=== PATIENT | female | born 1940 | race Hispanic/Latino ===

== ENCOUNTER 2018-05-22 21:50 | Observation (INO) | payer OTHER ==
[~2018-05-22] VITALS: Ht 165.1 cm; Wt 85.0 kg
[2018-05-22] MEDS ORDERED: ASPIRIN 325 MG TABLET ONE (21:56)
[2018-05-22 22:09] LABS: BASOPHILS % (AUTO) 0.4 % (0.0-5.0); EOSINOPHILS % (AUTO) 0.1 % (0.0-8.0); LYMPHOCYTES % (AUTO) 5.3 % (21.0-51.0); MEAN CORPUSCULAR HEMOGLOBIN 29.7 pg (27.0-33.0); MEAN CORPUSCULAR HGB CONC 32.8 g/dL (32.0-36.0); MEAN CORPUSCULAR VOLUME 90.4 fL (79-99); MONOCYTES % (AUTO) 10.2 % (3.0-13.0); PLATELET COUNT (AUTO) 115 K/uL (130-400); RED BLOOD CELL COUNT(AUTO) 2.98 MIL/uL (4.00-5.50); RED CELL DISTRIBUTION WIDTH 15.8 % (11.0-15.5); WHITE BLOOD COUNT (AUTO) 9.5 K/uL (4.8-10.8)
[2018-05-22 22:21] LABS: CREATININE 1.9 mg/dL (0.5-1.5); POTASSIUM 5.3 mmol/L (3.5-5.1)
[2018-05-22 22:23] LABS: INR 1.02 (0.85-1.15); PARTIAL THROMBOPLASTIN TIME 34.4 SEC (26.3-35.5); PROTHROMBIN TIME 10.7 SEC (9.6-11.6)
[2018-05-22 22:39] LABS: PLATELET MORPHOLOGY PLT CLUMPS PRESENT
[2018-05-22 22:41] LABS: ALBUMIN 3.4 g/dL (3.5-5.0); BILIRUBIN,TOTAL 1.4 mg/dL (0.2-1.0); TOTAL PROTEIN, SERUM 7.1 g/dL (6.0-8.3)
[2018-05-22] MEDS ORDERED: NITROGLYCERIN 1GM/1 INCH PACKET TD ONE (22:44)
[2018-05-23] VITALS (8 sets, daily range): BP systolic 147–175; BP diastolic 52–68
[2018-05-23] MEDS ORDERED: SODIUM POLYSTYRENE SULFONATE 15 GM/60 ML ML ONE (00:17)
[2018-05-23] MEDS ORDERED: FUROSEMIDE 10 MG/ML 4ML VIAL ONE (00:18)
[2018-05-23] MEDS ORDERED: SODIUM CHLORIDE 0.9% 100 ML IV ONE (00:21)
[2018-05-23] MEDS ORDERED: CALCIUM GLUCONATE 1 GM/10 ML VIAL IV ONE (00:21)
[2018-05-23] MEDS ORDERED: ATOR10TA69 PO (01:58)
[2018-05-23] MEDS ORDERED: GLIP5TAB11 PO (01:58)
[2018-05-23] MEDS ORDERED: ROSU5TAB11 PO (01:58)
[2018-05-23] MEDS ORDERED: ACAR50TA PO (01:58)
[2018-05-23] MEDS ORDERED: OLME40TA18 PO (01:58)
[2018-05-23] MEDS ORDERED: BACL10TA PO (01:58)
[2018-05-23] MEDS ORDERED: AEC81 PO (01:58)
[2018-05-23] MEDS ORDERED: CYAN10009 PO (01:58)
[2018-05-23] MEDS ORDERED: FOLI1TAB85 PO (01:58)
[2018-05-23] MEDS ORDERED: CLOP75TA32 PO (01:58)
[2018-05-23] MEDS ORDERED: SPIR25TA6 PO (01:58)
[2018-05-23] MEDS ORDERED: FAMO20TA8 PO (01:58)
[2018-05-23] MEDS ORDERED: AMLO10TA6 PO (01:58)
[2018-05-23] MEDS ORDERED: LABE200T5 PO (01:58)
[2018-05-23] MEDS ORDERED: IRBE300T19 PO (01:58)
[2018-05-23] MEDS ORDERED: CATAPRES PATCH (02:06)
[2018-05-23] MEDS ORDERED: ONDANSETRON HCL 4 MG/2 ML VIAL IVP PRN (03:00)
[2018-05-23] MEDS ORDERED: ALBUTEROL SULFATE 0.083% 2.5 MG/3 ML INH IH PRN (03:00)
[2018-05-23 03:49] LABS: BASOPHILS % (AUTO) 0.4 % (0.0-5.0); HEMATOCRIT 23.3 % (36-48); LYMPHOCYTES % (AUTO) 6.8 % (21.0-51.0); MEAN CORPUSCULAR HEMOGLOBIN 30.5 pg (27.0-33.0); MEAN CORPUSCULAR HGB CONC 34.1 g/dL (32.0-36.0); MEAN CORPUSCULAR VOLUME 89.6 fL (79-99); MONOCYTES % (AUTO) 9.3 % (3.0-13.0); NEUTROPHILS % (AUTO) 83.5 % (40.0-77.0); PLATELET COUNT (AUTO) 123 K/uL (130-400); RED BLOOD CELL COUNT(AUTO) 2.61 MIL/uL (4.00-5.50); RED CELL DISTRIBUTION WIDTH 15.9 % (11.0-15.5); WHITE BLOOD COUNT (AUTO) 7.6 K/uL (4.8-10.8)
[2018-05-23 03:59] LABS: ALBUMIN 3.1 g/dL (3.5-5.0); BILIRUBIN,TOTAL 1.3 mg/dL (0.2-1.0); CREATININE 1.9 mg/dL (0.5-1.5); POTASSIUM 4.8 mmol/L (3.5-5.1); TOTAL PROTEIN, SERUM 6.6 g/dL (6.0-8.3)
[2018-05-23 04:10] LABS: B-TYPE NATRIURETIC PEPTIDE 1500 pg/mL (0-100)
[2018-05-23] MEDS ORDERED: FUROSEMIDE 10 MG/ML 4ML VIAL IVP SCH (06:00)
[2018-05-23] MEDS ORDERED: GLUCAGON 1MG KIT 1 MG ML IM PRN (06:45)
[2018-05-23] MEDS ORDERED: DEXTROSE 50%-WATER 50 ML DISP.SYRIN IV PRN (06:45)
[2018-05-23] MEDS: INSULIN HUMULIN R 100 UNIT/ML 3ML SQ SCH ×4 (06:54→21:00)
[2018-05-23] MEDS: ASPIRIN 81MG TAB.CHEW PO SCH (08:30)
[2018-05-23] MEDS: ENOXAPARIN SODIUM 80 MG/0.8 ML SQ SCH ×2 (08:32→23:32)
[2018-05-23] MEDS ORDERED: SODIUM POLYSTYRENE SULFONATE 15 GM/60 ML ML PO SCH (09:00)
[2018-05-23] MEDS ORDERED: METOPROLOL TARTRATE 25 MG TAB PO SCH (09:00)
[2018-05-23] MEDS: AMLODIPINE BESYLATE 5 MG TAB PO SCH (11:22)
[2018-05-23] MEDS: ACETAMINOPHEN 325 MG TAB PO PRN (11:24)
[2018-05-23] MEDS: IPRATROPIUM/ALBUTEROL SULFATE 3 ML SOLUTION IH SCH ×3 (11:41→23:57)
[2018-05-23 14:54] LABS: APPEARANCE,URINE Clear (CLEAR); BILIRUBIN,URINE Negative (NEGATIVE); COLOR,URINE Yellow (YELLOW); GLUCOSE, URINE (UA) Negative (NEGATIVE); KETONES,URINE Negative (NEGATIVE); LEUKOCYTE ESTERASE ,URINE Negative (NEGATIVE); NITRATE,URINE Negative (NEGATIVE); OCCULT BLOOD,URINE Negative (NEGATIVE); PROTEIN,URINE Negative (NEGATIVE); UROBILINOGEN,URINE 0.2 mg/dL (0.2-1.0)
[2018-05-23] MEDS: LEVOFLOXACIN 500 MG/D5W 100 ML 100 ML IV SCH (16:57)
[2018-05-23] MEDS: FUROSEMIDE 40 MG TABLET PO SCH (17:05)
[2018-05-23] MEDS ORDERED: CLON.3P TD (18:12)
[2018-05-23] MEDS: ATORVASTATIN CALCIUM 40 MG TABLET PO SCH (23:31)
[2018-05-23] MEDS: LABETALOL HCL 100 MG TABLET PO SCH (23:31)
[2018-05-24] MEDS: ACETAMINOPHEN 325 MG TAB PO PRN (02:08)
[2018-05-24 03:00] VITALS: BP 150/58
[2018-05-24] MEDS: INSULIN HUMULIN R 100 UNIT/ML 3ML SQ SCH ×4 (05:00→20:55)
[2018-05-24 05:48] LABS: HEMATOCRIT 24.4 % (36-48); MEAN CORPUSCULAR HGB CONC 32.4 g/dL (32.0-36.0); MEAN CORPUSCULAR VOLUME 89.5 fL (79-99); PLATELET COUNT (AUTO) 116 K/uL (130-400); RED BLOOD CELL COUNT(AUTO) 2.73 MIL/uL (4.00-5.50); RED CELL DISTRIBUTION WIDTH 15.4 % (11.0-15.5)
[2018-05-24 05:54] LABS: CREATININE 2.1 mg/dL (0.5-1.5); POTASSIUM 3.3 mmol/L (3.5-5.1)
[2018-05-24 05:55] LABS: INR 1.09 (0.85-1.15); PARTIAL THROMBOPLASTIN TIME 43.9 SEC (26.3-35.5); PROTHROMBIN TIME 11.4 SEC (9.6-11.6)
[2018-05-24] MEDS: IPRATROPIUM/ALBUTEROL SULFATE 3 ML SOLUTION IH SCH ×4 (06:39→23:13)
[2018-05-24 07:47] VITALS: BP 155/56
[2018-05-24] MEDS ORDERED: AMLODIPINE BESYLATE 5 MG TAB PO SCH (09:00)
[2018-05-24] MEDS: ASPIRIN 81MG TAB.CHEW PO SCH (10:04)
[2018-05-24] MEDS: FUROSEMIDE 40 MG TABLET PO SCH ×2 (10:04→16:35)
[2018-05-24] MEDS: LABETALOL HCL 100 MG TABLET PO SCH ×2 (10:05→20:54)
[2018-05-24] MEDS: AMLODIPINE BESYLATE 5 MG TAB PO SCH (10:05)
[2018-05-24] MEDS: LOSARTAN 100 MG TABLET PO SCH (10:05)
[2018-05-24] MEDS: ENOXAPARIN SODIUM 80 MG/0.8 ML SQ SCH ×2 (10:10→20:53)
[2018-05-24 11:35] VITALS: BP 173/65
[2018-05-24] MEDS ORDERED: HYDRALAZINE HCL 25 MG TABLET PO PRN (14:30)
[2018-05-24 16:04] VITALS: BP 148/49
[2018-05-24] MEDS: LEVOFLOXACIN 500 MG/D5W 100 ML 100 ML IV SCH (16:35)
[2018-05-24 20:07] VITALS: BP 144/58
[2018-05-24] MEDS: ATORVASTATIN CALCIUM 40 MG TABLET PO SCH (20:53)
[2018-05-24 23:50] LABS: APPEARANCE,URINE Clear (CLEAR); BILIRUBIN,URINE Negative (NEGATIVE); COLOR,URINE Yellow (YELLOW); GLUCOSE, URINE (UA) Negative (NEGATIVE); KETONES,URINE Negative (NEGATIVE); LEUKOCYTE ESTERASE ,URINE Trace (NEGATIVE); NITRATE,URINE Negative (NEGATIVE); OCCULT BLOOD,URINE Negative (NEGATIVE); PROTEIN,URINE Negative (NEGATIVE)
[2018-05-24 23:59] VITALS: BP 142/50
[2018-05-25 00:23] LABS: BACTERIA,URINE Rare /HPF (None Seen); RBC,URINE 0-1 /HPF (0-1); SQUAMOUS EPITHELIAL CELL,UR 0-2 /HPF (0-2)
[2018-05-25 03:36] LABS: BASOPHILS % (AUTO) 0.3 % (0.0-5.0); EOSINOPHILS % (AUTO) 1.8 % (0.0-8.0); HEMATOCRIT 23.1 % (36-48); LYMPHOCYTES % (AUTO) 12.2 % (21.0-51.0); MEAN CORPUSCULAR HEMOGLOBIN 29.7 pg (27.0-33.0); MEAN CORPUSCULAR HGB CONC 33.5 g/dL (32.0-36.0); MEAN CORPUSCULAR VOLUME 88.6 fL (79-99); MONOCYTES % (AUTO) 12.4 % (3.0-13.0); NEUTROPHILS % (AUTO) 73.3 % (40.0-77.0); PLATELET COUNT (AUTO) 128 K/uL (130-400); RED BLOOD CELL COUNT(AUTO) 2.61 MIL/uL (4.00-5.50); RED CELL DISTRIBUTION WIDTH 15.1 % (11.0-15.5); WHITE BLOOD COUNT (AUTO) 4.8 K/uL (4.8-10.8)
[2018-05-25 03:55] LABS: CREATININE 1.9 mg/dL (0.5-1.5); POTASSIUM 3.4 mmol/L (3.5-5.1)
[2018-05-25 04:02] VITALS: BP 158/57
[2018-05-25] MEDS: IPRATROPIUM/ALBUTEROL SULFATE 3 ML SOLUTION IH SCH ×2 (06:08→11:39)
[2018-05-25] MEDS: INSULIN HUMULIN R 100 UNIT/ML 3ML SQ SCH ×2 (06:38→11:30)
[2018-05-25 07:39] VITALS: BP 162/48
[2018-05-25] MEDS: AMLODIPINE BESYLATE 5 MG TAB PO SCH (09:26)
[2018-05-25] MEDS: LABETALOL HCL 100 MG TABLET PO SCH (09:27)
[2018-05-25] MEDS: FUROSEMIDE 40 MG TABLET PO SCH (09:27)
[2018-05-25] MEDS: LOSARTAN 100 MG TABLET PO SCH (09:27)
[2018-05-25] MEDS: ASPIRIN 81MG TAB.CHEW PO SCH (09:27)
[2018-05-25] MEDS: ENOXAPARIN SODIUM 80 MG/0.8 ML SQ SCH (09:28)
[2018-05-25 11:36] VITALS: BP 166/64
[2018-05-25] MEDS ORDERED: POTASSIUM CHLORIDE 20 MEQ ERTAB PO SCH ×2 (13:30)
[2018-05-25] MEDS: LEVOFLOXACIN 500 MG/D5W 100 ML 100 ML IV SCH (14:25)
== END 2018-05-25 16:09 | disposition home or self-care (01) ==
LOC: EDH 21:50 → EDHIP 05-23 00:05 → INTOOBSV 05-23 00:05 → 2DH 05-23 01:03
PROVIDERS: ADMIT Hospitalist; ATTEND Hospitalist
DX: I25.110 Atherosclerotic heart disease of native coronary artery with unstable angina pectoris (principal); N17.9 Acute kidney failure, unspecified; E44.0 Moderate protein-calorie malnutrition; E03.9 Hypothyroidism, unspecified; I13.0 Hypertensive heart and chronic kidney disease with heart failure and stage 1 through stage 4 chronic kidney disease, or unspecified chronic kidney disease; N18.9 Chronic kidney disease, unspecified; E78.5 Hyperlipidemia, unspecified; I50.9 Heart failure, unspecified; E11.22 Type 2 diabetes mellitus with diabetic chronic kidney disease; E11.51 Type 2 diabetes mellitus with diabetic peripheral angiopathy without gangrene; E66.9 Obesity, unspecified; E87.5 Hyperkalemia; G47.33 Obstructive sleep apnea (adult) (pediatric); Z95.1 Presence of aortocoronary bypass graft; Z82.49 Family history of ischemic heart disease and other diseases of the circulatory system; Z83.3 Family history of diabetes mellitus; Z82.5 Family history of asthma and other chronic lower respiratory diseases; Z79.899 Other long term (current) drug therapy
CPT/HCPCS: 36415 ×4; 71045 ×2; 71046; 78580; 80048 ×2; 80053 ×2; 81001; 81003; 82550; 82948 ×10; 83874; 83880 ×2; 84484 ×2; 85025 ×3; 85027; 85378; 85610 ×2; 85730 ×2; 87040 ×2; 87077; 87088; 87186; 93005 ×2; 93306; 94640 ×10; 94664; 96365; 96366 ×2; 96372 ×3; 96375; 99285; A9540 ×2; G0378 ×64; J0610; J1650 ×5; J1815 ×4; J1940 ×2; J1956 ×3

== ENCOUNTER → 2018-09-12 | Outpatient (CLI) | payer OTHER ==
[~2018-09-12] MED LIST: ACAR50TA PO; AEC81 PO; AMLO10TA7 PO; ATOR10TA69 PO; BACL10TA PO; CATAPRES PATCH; CLON.3P TD; CLOP75TA32 PO; CYAN10009 PO; FAMO20TA8 PO; FOLI1TAB85 PO; GLIP5TAB11 PO; IRBE300T19 PO; LABE200T5 PO; OLME40TA18 PO; ROSU5TAB11 PO; SPIR25TA6 PO
== END | disposition home or self-care (01) ==
LOC: SHCH 13:19
PROVIDERS: ATTEND Internal Medicine Cardiovascular Disease
DX: I65.23 Occlusion and stenosis of bilateral carotid arteries (principal); I25.10 Atherosclerotic heart disease of native coronary artery without angina pectoris; I47.1 Supraventricular tachycardia
CPT/HCPCS: 93880

== ENCOUNTER 2018-10-21 10:33 | Emergency (ER) | payer OTHER ==
[2018-10-21] MEDS ORDERED: TETANUS/DIPHTHERIA TOXOID [ADULT] 0.5 ML VIAL IM ONE (11:59)
== END 2018-10-21 12:07 | disposition home or self-care (01) ==
LOC: EDH 10:33
DX: S51.811A Laceration without foreign body of right forearm, initial encounter (principal); M25.562 Pain in left knee; I25.810 Atherosclerosis of coronary artery bypass graft(s) without angina pectoris; E11.9 Type 2 diabetes mellitus without complications; E78.5 Hyperlipidemia, unspecified; I10 Essential (primary) hypertension; Z79.4 Long term (current) use of insulin; W18.39XA Other fall on same level, initial encounter; Y93.01 Activity, walking, marching and hiking; Y92.89 Other specified places as the place of occurrence of the external cause; Y99.8 Other external cause status
CPT/HCPCS: 73080; 73562; 90471; 90714

== ENCOUNTER 2018-11-02 12:31 | Inpatient (IN) | payer OTHER ==
[~2018-11-02] VITALS: Ht 157.5 cm; Wt 82.0 kg
[2018-11-02 13:06] LABS: BASOPHILS % (AUTO) 0.4 % (0.0-5.0); EOSINOPHILS % (AUTO) 0.6 % (0.0-8.0); HEMATOCRIT 30.6 % (36-48); LYMPHOCYTES % (AUTO) 11.9 % (21.0-51.0); MEAN CORPUSCULAR HEMOGLOBIN 31.2 pg (27.0-33.0); MEAN CORPUSCULAR HGB CONC 33.5 g/dL (32.0-36.0); MEAN CORPUSCULAR VOLUME 92.9 fL (79-99); MONOCYTES % (AUTO) 6.1 % (3.0-13.0); PLATELET COUNT (AUTO) 166 K/uL (130-400); RED CELL DISTRIBUTION WIDTH 15.4 % (11.0-15.5)
[2018-11-02 13:24] LABS: APPEARANCE,URINE Clear (CLEAR); BILIRUBIN,URINE Negative (NEGATIVE); COLOR,URINE Yellow (YELLOW); GLUCOSE, URINE (UA) Negative (NEGATIVE); KETONES,URINE Negative (NEGATIVE); LEUKOCYTE ESTERASE ,URINE Negative (NEGATIVE); NITRATE,URINE Negative (NEGATIVE); OCCULT BLOOD,URINE Negative (NEGATIVE); PROTEIN,URINE Negative (NEGATIVE)
[2018-11-02 13:28] LABS: CREATININE 2.6 mg/dL (0.5-1.5); POTASSIUM 4.4 mmol/L (3.5-5.1)
[2018-11-02 13:30] LABS: INR 0.94 (0.85-1.15); PARTIAL THROMBOPLASTIN TIME 25.9 SEC (26.3-35.5); PROTHROMBIN TIME 9.9 SEC (9.6-11.6)
[2018-11-02 13:32] LABS: ALBUMIN 3.7 g/dL (3.5-5.0); BILIRUBIN,TOTAL 0.5 mg/dL (0.2-1.0)
[2018-11-02] MEDS ORDERED: CLONIDINE HCL 0.1 MG TABLET ONE (14:57)
[2018-11-02] MEDS ORDERED: ASPIRIN 325 MG TABLET ONE (14:57)
[2018-11-02] MEDS ORDERED: CEFTRIAXONE SODIUM 1 GM ONE (15:41)
[2018-11-02] MEDS: SODIUM CHLORIDE 0.9% 1000ML 1,000 ML IV SCH (17:00)
[2018-11-02 18:30] VITALS: BP 149/65
[2018-11-02 19:00] VITALS: BP 149/65
[2018-11-02] MEDS ORDERED: FAMO-136 PO (20:06)
[2018-11-02] MEDS ORDERED: CLON0.1T PO (20:06)
[2018-11-02] MEDS ORDERED: HYDR100T27 PO (20:06)
[2018-11-02] MEDS ORDERED: INSU100V12 SQ (20:06)
[2018-11-02] MEDS ORDERED: FURO40TA7 PO (20:06)
[2018-11-02] MEDS ORDERED: LATA7.5D OP (20:06)
[2018-11-02] MEDS ORDERED: BACLOFEN 10 MG TABLET PO SCH (20:15)
[2018-11-02] MEDS ORDERED: DEXTROSE 50%-WATER 50 ML DISP.SYRIN IV PRN (20:30)
[2018-11-02] MEDS ORDERED: GLUCAGON 1MG KIT 1 MG ML IM PRN (20:30)
[2018-11-02] MEDS ORDERED: FAMOTIDINE 20MG TAB 20 MG TAB PO SCH (21:00)
[2018-11-02] MEDS: LABETALOL HCL 200 MG TABLET PO SCH ×2 (21:00→21:49)
[2018-11-02] MEDS: HYDRALAZINE HCL 25 MG TABLET PO SCH ×2 (21:00→21:48)
[2018-11-02] MEDS: CLONIDINE HCL 0.1 MG TABLET PO SCH ×2 (21:00→21:48)
[2018-11-02] MEDS: INSULIN HUMULIN R 100 UNIT/ML 3ML SQ SCH ×2 (21:00→21:51)
[2018-11-02] MEDS: LATANOPROST 2.5 ML DROPS OP SCH (21:47)
[2018-11-02] MEDS: FUROSEMIDE 40 MG TABLET PO SCH ×2 (21:49→22:17)
--- NOTE | 2018-11-02 21:50 | NUR ---
Pt's daughter here to bedside and said pt. meier already taken her bedtime meds except for her Lasix.She also refused to have insulin coverage given because according to her pt. is very sensitive.
--- NOTE | 2018-11-02 22:04 | NUR ---
Dr. Fadia antunez MD for Dr. Dover was called and notified regarding consult.Will see pt. tomorrow he said.
[2018-11-02 23:00] VITALS: BP 156/57
[2018-11-03 03:00] VITALS: BP 176/60
--- NOTE | 2018-11-03 03:58 | NUR ---
STORMY Hope was called and notified regarding pt.c/o headache .Received order to give Tylenol with Codeine 1 tab p.o q 6.prn pain.BP 176/60mmHg and will give prn hydralazine as ordered.Will continue to monitor pt.
[2018-11-03] MEDS ORDERED: ACETAMINOPHEN-CODEINE 300/30MG TAB PO PRN (04:00)
[2018-11-03] MEDS ORDERED: ACETAMINOPHEN-CODEINE 300/30MG TAB ONE (04:05)
[2018-11-03] MEDS: HYDRALAZINE HCL 20 MG/ML VIAL IV PRN (04:09)
[2018-11-03] MEDS: INSULIN HUMULIN R 100 UNIT/ML 3ML SQ SCH ×4 (07:09→20:36)
[2018-11-03 07:11] LABS: HEMATOCRIT 28.4 % (36-48); MEAN CORPUSCULAR HEMOGLOBIN 31.4 pg (27.0-33.0); MEAN CORPUSCULAR HGB CONC 33.6 g/dL (32.0-36.0); MEAN CORPUSCULAR VOLUME 93.4 fL (79-99); PLATELET COUNT (AUTO) 146 K/uL (130-400); RED BLOOD CELL COUNT(AUTO) 3.04 MIL/uL (4.00-5.50); RED CELL DISTRIBUTION WIDTH 15.7 % (11.0-15.5); WHITE BLOOD COUNT (AUTO) 4.6 K/uL (4.8-10.8)
[2018-11-03 07:39] LABS: POTASSIUM 4.6 mmol/L (3.5-5.1)
[2018-11-03 07:40] LABS: CREATININE 2.2 mg/dL (0.5-1.5); THYROID STIMULATING HORMONE 0.18 uIU/mL (0.36-3.74)
[2018-11-03 08:00] VITALS: BP 182/60
[2018-11-03] MEDS: ACARBOSE 25 MG TABLET PO SCH ×2 (08:00→17:52)
[2018-11-03] MEDS: LATANOPROST 2.5 ML DROPS OP SCH ×2 (09:00→20:36)
[2018-11-03] MEDS ORDERED: SPIRONOLACTONE 25 MG TAB PO SCH (09:00)
--- NOTE | 2018-11-03 09:40 | NUR ---
DR. LARA NOTIFIED REGARDING CONSULT.
[2018-11-03] MEDS: HYDRALAZINE HCL 25 MG TABLET PO SCH ×3 (10:06→20:35)
[2018-11-03] MEDS: GLIPIZIDE 5 MG TABLET PO SCH ×2 (10:07→17:52)
[2018-11-03] MEDS: FOLIC ACID/VITAMIN B COMP W-C 1 MG CAPSULE PO SCH (10:07)
[2018-11-03] MEDS: FAMOTIDINE 20MG TAB 20 MG TAB PO SCH (10:07)
[2018-11-03] MEDS: LOSARTAN 100 MG TABLET PO SCH (10:08)
[2018-11-03] MEDS: CLONIDINE HCL 0.1 MG TABLET PO SCH ×3 (10:08→20:35)
[2018-11-03] MEDS: ATORVASTATIN CALCIUM 10 MG TABLET PO SCH (10:09)
[2018-11-03] MEDS: FUROSEMIDE 40 MG TABLET PO SCH (10:09)
[2018-11-03] MEDS: LABETALOL HCL 200 MG TABLET PO SCH ×2 (10:09→20:35)
[2018-11-03] MEDS: SODIUM CHLORIDE 0.9% 1000ML 1,000 ML IV SCH ×2 (10:10→23:25)
[2018-11-03 12:00] VITALS: BP 143/56
--- NOTE | 2018-11-03 12:19 | NUR ---
D/C PLAN CM spoke to pt and family regarding d/c planning. Daughter named Emani at bedside. Pt is ind. and lives with spouse. Spouse assists in care as needed. Denies having any home health or provider services. Plan to home. CM to f/u. Addendum: 11/03/18 at 1225 by CHER DAWN CM Amended: Links added.
[2018-11-03] MEDS: INSULIN GLARGINE 100 UNITS/ML 10 ML VIAL SQ SCH (12:24)
[2018-11-03] MEDS ORDERED: ONDANSETRON HCL 4 MG/2 ML VIAL IVP PRN (12:30)
[2018-11-03 16:09] VITALS: BP 130/53
[2018-11-03 19:00] VITALS: BP 156/67
--- NOTE | 2018-11-03 20:35 | NUR ---
MEDS PT'S DUE MEDS ADMINISTERED, TOLERATED WELL. KEPT RESTED AND COMFORTABLE IN BED. FAMILY STILL AT BEDSIDE. INSTRUCTED FAMILY TO LET STAFF KNOW WHEN NOBODY IS WITH PT TO MONITOR PT CLOSELY.
[2018-11-03 23:10] VITALS: BP 158/73
--- NOTE | 2018-11-04 02:00 | NUR ---
ROUNDS PT RESTING WELL, FAIRLY ASLEEP WITH RESPIRATIONS EVEN AND UNLABORED. NO NOTED DISTRESS. KEPT UNDISTURBED FOR NOW. CALL LIGHT WITHIN REACH. PT'S SPOUSE ASLEEP AT BEDSIDE.
--- NOTE | 2018-11-04 02:08 | NUR ---
SUGAR PT AWAKENED AND COMPLAINTS OF FEELING WARM AND SWEATY. BLOOD SUGAR CHECKED =60. APPLE JUICE PROVIDED FOR PT TO DRINK. PT ALSO HAS CHICKEN SANDWICH AT BEDSIDE AND STATED WILL EAT IT. KEPT COMFORTABLE. WILL RE-ASSESS PT.
[2018-11-04 04:07] VITALS: BP 121/43
[2018-11-04 05:38] LABS: BASOPHILS % (AUTO) 0.3 % (0.0-5.0); EOSINOPHILS % (AUTO) 0.7 % (0.0-8.0); HEMATOCRIT 27.3 % (36-48); LYMPHOCYTES % (AUTO) 11.3 % (21.0-51.0); MEAN CORPUSCULAR HEMOGLOBIN 32.1 pg (27.0-33.0); MEAN CORPUSCULAR HGB CONC 34.4 g/dL (32.0-36.0); MEAN CORPUSCULAR VOLUME 93.5 fL (79-99); MONOCYTES % (AUTO) 5.5 % (3.0-13.0); NEUTROPHILS % (AUTO) 82.2 % (40.0-77.0); PLATELET COUNT (AUTO) 138 K/uL (130-400); RED BLOOD CELL COUNT(AUTO) 2.92 MIL/uL (4.00-5.50); RED CELL DISTRIBUTION WIDTH 15.8 % (11.0-15.5); WHITE BLOOD COUNT (AUTO) 6.5 K/uL (4.8-10.8)
[2018-11-04 05:51] LABS: ALBUMIN 2.9 g/dL (3.5-5.0); CREATININE 2.5 mg/dL (0.5-1.5); PHOSPHORUS 4.3 mg/dL (2.5-4.9); POTASSIUM 4.5 mmol/L (3.5-5.1)
--- NOTE | 2018-11-04 06:00 | NUR ---
ROUNDS PT RESTING WELL. NO CONCERNS VERBALIZED. NO DISTRESS NOTED. KEPT COMFORTABLE. FOR MORE CARE AND MANAGEMENT.
[2018-11-04] MEDS: INSULIN HUMULIN R 100 UNIT/ML 3ML SQ SCH ×4 (06:07→21:00)
[2018-11-04 08:00] VITALS: BP 147/58
[2018-11-04] MEDS: LOSARTAN 100 MG TABLET PO SCH (08:44)
[2018-11-04] MEDS: FAMOTIDINE 20MG TAB 20 MG TAB PO SCH (08:44)
[2018-11-04] MEDS: FOLIC ACID/VITAMIN B COMP W-C 1 MG CAPSULE PO SCH (08:44)
[2018-11-04] MEDS: HYDRALAZINE HCL 25 MG TABLET PO SCH ×3 (08:44→21:03)
[2018-11-04] MEDS: LABETALOL HCL 200 MG TABLET PO SCH ×2 (08:44→21:02)
[2018-11-04] MEDS: ATORVASTATIN CALCIUM 10 MG TABLET PO SCH (08:44)
[2018-11-04] MEDS: GLIPIZIDE 5 MG TABLET PO SCH ×2 (08:45→16:10)
[2018-11-04] MEDS: CLONIDINE HCL 0.1 MG TABLET PO SCH ×3 (08:47→21:02)
[2018-11-04] MEDS: INSULIN GLARGINE 100 UNITS/ML 10 ML VIAL SQ SCH (08:48)
[2018-11-04] MEDS: ACARBOSE 25 MG TABLET PO SCH ×2 (08:52→16:10)
[2018-11-04] MEDS: LATANOPROST 2.5 ML DROPS OP SCH ×2 (08:53→21:03)
[2018-11-04 12:00] VITALS: BP 153/54
[2018-11-04] MEDS: SODIUM CHLORIDE 0.9% 1000ML 1,000 ML IV SCH (15:28)
[2018-11-04 16:22] VITALS: BP 154/59
[2018-11-04 20:00] VITALS: BP 150/59
[2018-11-05] VITALS (7 sets, daily range): BP systolic 136–185; BP diastolic 50–71
--- NOTE | 2018-11-05 06:04 | NUR ---
BLOOD SUGAR Pt blood sugar check at this time was recorded at 55, pt asymptomatic, AOX3, no confusion noted, able to state name, , and place, pt not diaphoretic, and able to eat and swallow, 4oz of apple juice provided with crackers and peanut butter. pt tolerating well, nursing will repeat sugar check and continue to monitor.
[2018-11-05] MEDS: INSULIN HUMULIN R 100 UNIT/ML 3ML SQ SCH ×4 (06:53→21:00)
--- NOTE | 2018-11-05 06:55 | NUR ---
BLOOD SUGAR Repeat sugar check 101
[2018-11-05] MEDS: INSULIN GLARGINE 100 UNITS/ML 10 ML VIAL SQ SCH (08:20)
[2018-11-05] MEDS: ACARBOSE 25 MG TABLET PO SCH ×2 (08:21→17:01)
[2018-11-05] MEDS: FOLIC ACID/VITAMIN B COMP W-C 1 MG CAPSULE PO SCH (08:23)
[2018-11-05] MEDS: ATORVASTATIN CALCIUM 10 MG TABLET PO SCH (08:23)
[2018-11-05] MEDS: LOSARTAN 100 MG TABLET PO SCH (08:23)
[2018-11-05] MEDS: LABETALOL HCL 200 MG TABLET PO SCH ×2 (08:24→21:37)
[2018-11-05] MEDS: GLIPIZIDE 5 MG TABLET PO SCH ×2 (08:24→17:01)
[2018-11-05] MEDS: FAMOTIDINE 20MG TAB 20 MG TAB PO SCH (08:24)
[2018-11-05] MEDS: HYDRALAZINE HCL 25 MG TABLET PO SCH ×3 (08:24→21:38)
[2018-11-05] MEDS: LATANOPROST 2.5 ML DROPS OP SCH ×2 (08:25→21:40)
[2018-11-05] MEDS: CLONIDINE HCL 0.1 MG TABLET PO SCH ×3 (08:25→21:38)
[2018-11-05 09:25] LABS: HEMATOCRIT 27.6 % (36-48); MEAN CORPUSCULAR HEMOGLOBIN 32.6 pg (27.0-33.0); MEAN CORPUSCULAR HGB CONC 34.2 g/dL (32.0-36.0); MEAN CORPUSCULAR VOLUME 95.2 fL (79-99); NUCLEATED RED BLOOD CELLS 0.1 % (0.0-0.19); PLATELET COUNT (AUTO) 128 K/uL (130-400); RED CELL DISTRIBUTION WIDTH 15.6 % (11.0-15.5); WHITE BLOOD COUNT (AUTO) 5.3 K/uL (4.8-10.8)
[2018-11-05 09:38] LABS: POTASSIUM 5.5 mmol/L (3.5-5.1)
--- NOTE | 2018-11-05 10:15 | NUR ---
Dr. Kern called for k 5.5. Message left for answering service, pending call back.
--- NOTE | 2018-11-05 11:30 | NUR ---
BS 390, pt asymptomatic. Dr. Oliver notified. No new orders.
[2018-11-05] MEDS: SODIUM POLYSTYRENE SULFONATE 15 GM/60 ML ML PO SCH (11:38)
[2018-11-05] MEDS: HYDRALAZINE HCL 20 MG/ML VIAL IV PRN (13:35)
--- NOTE | 2018-11-05 19:26 | NUR ---
Patient states she had BM today. Kayexelate given earlier for k5.5
--- NOTE | 2018-11-05 19:37 | NUR ---
Received bedside report ,pt. is awake and coherent,B/S 63.HS snack given .Pt. verbalized feeling better.Pt. is asymptomatic.Will recheck B/S in later.Pt's to bedside.
--- NOTE | 2018-11-05 20:05 | NUR ---
bLOOD SUGAR RECHECKED AND ITS 98.
[2018-11-06] VITALS: BP 154/55
--- NOTE | 2018-11-06 00:45 | NUR ---
Pt. asked to recheck her blood sugar and its 62.Pt. is alert and coherent.Given with oramge juice and some crackers with peanut butter per pt's choice.Will recheck blood sugar in 30 minutes.
[2018-11-06 04:00] VITALS: BP 150/61
[2018-11-06] MEDS: INSULIN HUMULIN R 100 UNIT/ML 3ML SQ SCH ×4 (06:41→21:00)
[2018-11-06 08:42] VITALS: BP 158/59
[2018-11-06] MEDS: INSULIN GLARGINE 100 UNITS/ML 10 ML VIAL SQ SCH (09:00)
[2018-11-06] MEDS: LATANOPROST 2.5 ML DROPS OP SCH ×2 (09:00→21:56)
[2018-11-06] MEDS: FOLIC ACID/VITAMIN B COMP W-C 1 MG CAPSULE PO SCH (09:17)
[2018-11-06] MEDS: FUROSEMIDE 40 MG TABLET PO SCH (09:17)
[2018-11-06] MEDS: LOSARTAN 100 MG TABLET PO SCH (09:17)
[2018-11-06] MEDS: FAMOTIDINE 20MG TAB 20 MG TAB PO SCH (09:17)
[2018-11-06] MEDS: ATORVASTATIN CALCIUM 10 MG TABLET PO SCH (09:17)
[2018-11-06] MEDS: CLONIDINE HCL 0.1 MG TABLET PO SCH ×3 (09:18→21:52)
[2018-11-06] MEDS: HYDRALAZINE HCL 25 MG TABLET PO SCH ×3 (09:22→21:53)
[2018-11-06] MEDS: LABETALOL HCL 200 MG TABLET PO SCH ×2 (09:22→21:52)
[2018-11-06] MEDS: ACARBOSE 25 MG TABLET PO SCH ×2 (09:47→17:38)
[2018-11-06] MEDS: GLIPIZIDE 5 MG TABLET PO SCH ×2 (09:48→17:38)
[2018-11-06] MEDS: SODIUM POLYSTYRENE SULFONATE 15 GM/60 ML ML PO SCH (11:00)
[2018-11-06 11:20] VITALS: BP 155/68
[2018-11-06 13:13] LABS: HEMATOCRIT 27.2 % (36-48); MEAN CORPUSCULAR HEMOGLOBIN 31.1 pg (27.0-33.0); MEAN CORPUSCULAR HGB CONC 33.1 g/dL (32.0-36.0); PLATELET COUNT (AUTO) 137 K/uL (130-400); RED CELL DISTRIBUTION WIDTH 15.3 % (11.0-15.5); WHITE BLOOD COUNT (AUTO) 4.9 K/uL (4.8-10.8)
[2018-11-06 13:20] LABS: CREATININE 1.7 mg/dL (0.5-1.5); POTASSIUM 4.3 mmol/L (3.5-5.1)
[2018-11-06 13:23] LABS: PHOSPHORUS 4.7 mg/dL (2.5-4.9)
[2018-11-06 16:02] VITALS: BP 157/62
[2018-11-06 20:00] VITALS: BP 162/63
[2018-11-07 00:45] VITALS: BP 162/70
[2018-11-07 04:00] VITALS: BP 161/62
[2018-11-07] MEDS: INSULIN HUMULIN R 100 UNIT/ML 3ML SQ SCH ×2 (06:15→11:30)
[2018-11-07 08:35] VITALS: BP 151/55
[2018-11-07] MEDS: HYDRALAZINE HCL 25 MG TABLET PO SCH ×2 (08:53→14:13)
[2018-11-07] MEDS: CLONIDINE HCL 0.1 MG TABLET PO SCH ×2 (08:54→14:15)
[2018-11-07] MEDS: FAMOTIDINE 20MG TAB 20 MG TAB PO SCH (08:54)
[2018-11-07] MEDS: ACARBOSE 25 MG TABLET PO SCH (08:54)
[2018-11-07] MEDS: FOLIC ACID/VITAMIN B COMP W-C 1 MG CAPSULE PO SCH (08:54)
[2018-11-07] MEDS: LOSARTAN 100 MG TABLET PO SCH (08:54)
[2018-11-07] MEDS: ATORVASTATIN CALCIUM 10 MG TABLET PO SCH (08:55)
[2018-11-07] MEDS: LABETALOL HCL 200 MG TABLET PO SCH (08:55)
[2018-11-07] MEDS: GLIPIZIDE 5 MG TABLET PO SCH (08:55)
[2018-11-07] MEDS: SODIUM POLYSTYRENE SULFONATE 15 GM/60 ML ML PO SCH (08:55)
[2018-11-07] MEDS: FUROSEMIDE 40 MG TABLET PO SCH (08:55)
[2018-11-07] MEDS: INSULIN GLARGINE 100 UNITS/ML 10 ML VIAL SQ SCH (09:00)
[2018-11-07] MEDS: LATANOPROST 2.5 ML DROPS OP SCH (10:51)
[2018-11-07 12:03] VITALS: BP 147/58
[2018-11-07 14:15] VITALS: BP 147/58
--- NOTE | 2018-11-07 16:00 | NUR ---
DISCHARGE INSTRUCTION GIVEN TO PATIENT AND DAUGHTER , PATIENT VERBALIZED UNDERSTANDING , IV AND TELEMETRY REMOVE AND IV SITE PRESSURE HELD FOR 4MINUTES THEN SITE DRESSED. REVIEWED MEDICATION ( CONTINUE HOME MEDICATIONS ) NO QUESTIONS OR CONCERN AT THIS. [facility] HER SIDE HAVE FOLLOW-UP APPOINTMENT THE 11/14/18 WITH HER PRIMARY PHYSICIAN
== END 2018-11-07 16:05 | disposition home or self-care (01) | DRG 682 ==
LOC: EDH 12:31 → EDHIP 15:00 → OBSVTOIN 15:00 → 3CH 18:00 → 3BH 11-03 19:31
PROVIDERS: ADMIT Internal Medicine Critical Care Medicine; ATTEND Internal Medicine Critical Care Medicine
DX: N17.9 Acute kidney failure, unspecified (principal); G93.41 Metabolic encephalopathy; I13.0 Hypertensive heart and chronic kidney disease with heart failure and stage 1 through stage 4 chronic kidney disease, or unspecified chronic kidney disease; I50.30 Unspecified diastolic (congestive) heart failure; E86.0 Dehydration; E11.51 Type 2 diabetes mellitus with diabetic peripheral angiopathy without gangrene; D64.9 Anemia, unspecified; E03.9 Hypothyroidism, unspecified; E11.22 Type 2 diabetes mellitus with diabetic chronic kidney disease; E78.5 Hyperlipidemia, unspecified; E87.5 Hyperkalemia; H40.9 Unspecified glaucoma; I25.10 Atherosclerotic heart disease of native coronary artery without angina pectoris; R62.7 Adult failure to thrive; E66.9 Obesity, unspecified; N18.4 Chronic kidney disease, stage 4 (severe); I48.2 Chronic atrial fibrillation; J44.9 Chronic obstructive pulmonary disease, unspecified; K21.9 Gastro-esophageal reflux disease without esophagitis; Z83.3 Family history of diabetes mellitus; Z82.49 Family history of ischemic heart disease and other diseases of the circulatory system; Z95.1 Presence of aortocoronary bypass graft; Z68.33 Body mass index [BMI] 33.0-33.9, adult
CPT/HCPCS: 36415; 70450; 74176; 80048; 80053; 80069; 81003; 82948; 83690; 83735; 84100; 84443; 84484; 85025; 85027; 85610; 85730; 93005; 97039; G0378; J0360; J0696; J1815; J2405; J7030; J7070

== ENCOUNTER → 2019-03-22 | Outpatient (CLI) | payer OTHER ==
[~2019-03-22] MED LIST changes: +CLON0.1T PO; +CYAN-52 PO; -CYAN10009 PO; +FAMO-136 PO; +FURO40TA7 PO; +HYDR100T27 PO; +INSU100V12 SQ; +LATA7.5D OP; -ROSU5TAB11 PO; +ROSU5TAB12 PO
== END | disposition home or self-care (01) ==
LOC: SLP 20:39
PROVIDERS: ATTEND Family Medicine
DX: G47.30 Sleep apnea, unspecified (principal); I10 Essential (primary) hypertension; E11.9 Type 2 diabetes mellitus without complications; E78.5 Hyperlipidemia, unspecified; E03.9 Hypothyroidism, unspecified; Z98.890 Other specified postprocedural states
CPT/HCPCS: 95810

== ENCOUNTER 2020-02-15 01:14 | Emergency (ER) | payer OTHER ==
[~2020-02-15 01:14] MED LIST changes: -ACAR50TA PO; +ACAR50TA5 PO; +IRBE300T18 PO; -IRBE300T19 PO
[2020-02-15] MEDS ORDERED: LIDOCAINE 1%-EPI 1:100,000 20 ML VIAL IJ ONE (01:39)
[2020-02-15] MEDS ORDERED: TETANUS/DIPHTHERIA TOXOID [ADULT] 0.5 ML VIAL IM ONE (01:56)
[2020-02-15] MEDS ORDERED: ACETAMINOPHEN 325 MG TAB ONE (02:28)
== END 2020-02-15 02:44 | disposition home or self-care (01) ==
LOC: EDH 01:14
DX: S81.811A Laceration without foreign body, right lower leg, initial encounter (principal); I25.10 Atherosclerotic heart disease of native coronary artery without angina pectoris; E11.9 Type 2 diabetes mellitus without complications; I10 Essential (primary) hypertension; E78.5 Hyperlipidemia, unspecified; W22.8XXA Striking against or struck by other objects, initial encounter; Y93.89 Activity, other specified; Y92.89 Other specified places as the place of occurrence of the external cause; Y99.8 Other external cause status
CPT/HCPCS: 12034; 90471; 90714; 99284; J3490

== ENCOUNTER 2020-03-03 12:07 | Day surgery (SDC) | payer OTHER ==
[2020-03-03 14:02] LABS: BASOPHILS % (AUTO) 0.2 % (0.0-5.0); EOSINOPHILS % (AUTO) 1.7 % (0.0-8.0); HEMATOCRIT 24.1 % (36-48); LYMPHOCYTES % (AUTO) 9.8 % (21.0-51.0); MEAN CORPUSCULAR HEMOGLOBIN 28.5 pg (27.0-33.0); MEAN CORPUSCULAR HGB CONC 30.3 g/dL (32.0-36.0); MEAN CORPUSCULAR VOLUME 94.1 fL (79-99); MONOCYTES % (AUTO) 7.7 % (3.0-13.0); NEUTROPHILS % (AUTO) 80.2 % (40.0-77.0); PLATELET COUNT (AUTO) 171 K/uL (130-400); RED BLOOD CELL COUNT(AUTO) 2.56 MIL/uL (4.00-5.50); RED CELL DISTRIBUTION WIDTH 16.7 % (11.0-15.5); WHITE BLOOD COUNT (AUTO) 5.3 K/uL (4.8-10.8)
[2020-03-03] MEDS ORDERED: SODIUM CHLORIDE 0.9% 100 ML IV ONE (14:13)
[2020-03-03 14:30] VITALS: BP 172/55
[2020-03-03] MEDS ORDERED: FUROSEMIDE 10 MG/ML 2ML VIAL IV SCH (19:00)
[2020-03-03 19:55] VITALS: BP 146/56
== END 2020-03-03 20:18 | disposition home or self-care (01) ==
LOC: EDH 12:07 → EDSTATUS 19:37 → DAH 20:18
PROVIDERS: ATTEND Family Medicine
DX: D64.9 Anemia, unspecified (principal); I10 Essential (primary) hypertension; I25.10 Atherosclerotic heart disease of native coronary artery without angina pectoris; E11.9 Type 2 diabetes mellitus without complications; E78.5 Hyperlipidemia, unspecified
CPT/HCPCS: 36415; 36430; 82948; 85025; 86850; 86900; 86901; 86922; 96374; A4215; A4216; A4221; A4222; A4223 ×3; A4606; A4663; J1940; P9016

== ENCOUNTER 2020-11-07 11:23 | Emergency (ER) | payer OTHER ==
[~2020-11-07 11:23] MED LIST changes: +AMLO-258 PO; -AMLO10TA7 PO
[2020-11-07] MEDS ORDERED: OCTYL 2-CYANOACRYLATE 1 EACH TP ONE (12:30)
[2020-11-07] MEDS ORDERED: TETANUS/DIPHTHERIA TOXOID [ADULT] 0.5 ML VIAL IM ONE (12:30)
== END 2020-11-07 13:10 | disposition home or self-care (01) ==
LOC: EDH 11:23
DX: S81.812A Laceration without foreign body, left lower leg, initial encounter (principal); I25.10 Atherosclerotic heart disease of native coronary artery without angina pectoris; E11.9 Type 2 diabetes mellitus without complications; E78.5 Hyperlipidemia, unspecified; I10 Essential (primary) hypertension; X58.XXXA Exposure to other specified factors, initial encounter; Y93.89 Activity, other specified; Y92.098 Other place in other non-institutional residence as the place of occurrence of the external cause; Y99.8 Other external cause status
CPT/HCPCS: 12034; 90471; 90714

== ENCOUNTER 2021-01-25 17:22 | Observation (INO) | payer OTHER ==
[~2021-01-25] VITALS: Ht 157.5 cm; Wt 79.2 kg
[2021-01-25 17:23] VITALS: BP 163/46
[2021-01-25 18:55] VITALS: BP 202/75
[2021-01-25] MEDS ORDERED: NITROGLYCERIN 1GM OINT 1 INCH/1GM TD ONE ×2 (19:00→19:02)
[2021-01-25 19:24] LABS: BASOPHILS % (AUTO) 0.5 % (0.0-5.0); EOSINOPHILS % (AUTO) 0.7 % (0.0-8.0); HEMATOCRIT 29.7 % (36-48); LYMPHOCYTES % (AUTO) 8.3 % (21.0-51.0); MEAN CORPUSCULAR HEMOGLOBIN 32.1 pg (27.0-33.0); MEAN CORPUSCULAR HGB CONC 32.3 g/dL (32.0-36.0); MEAN CORPUSCULAR VOLUME 99.3 fL (79-99); MONOCYTES % (AUTO) 9.5 % (3.0-13.0); NEUTROPHILS % (AUTO) 80.5 % (40.0-77.0); PLATELET COUNT (AUTO) 105 K/uL (130-400); RED BLOOD CELL COUNT(AUTO) 2.99 MIL/uL (4.00-5.50); RED CELL DISTRIBUTION WIDTH 13.1 % (11.0-15.5)
[2021-01-25 19:35] LABS: CREATININE 1.8 mg/dL (0.5-1.5); POTASSIUM 4.3 mmol/L (3.5-5.1)
[2021-01-25 19:36] LABS: INR 1.08 (0.85-1.15); PROTHROMBIN TIME 11.7 SEC (9.6-11.6)
[2021-01-25 19:45] LABS: ALBUMIN 3.7 g/dL (3.5-5.0); BILIRUBIN,TOTAL 1.5 mg/dL (0.2-1.0); MAGNESIUM 2.5 mg/dL (1.80-2.40); TOTAL PROTEIN, SERUM 7.7 g/dL (6.0-8.3); TROPONIN I 0.04 ng/mL (0.00-0.06)
[2021-01-25 20:09] LABS: B-TYPE NATRIURETIC PEPTIDE 1530 pg/mL (0-100)
[2021-01-25 20:12] VITALS: BP 186/81
[2021-01-25] MEDS ORDERED: LABETALOL HCL 100 MG TABLET PO STA (20:13)
[2021-01-25] MEDS ORDERED: HYDRALAZINE 25MG TABLET PO STA (20:16)
[2021-01-25] MEDS ORDERED: FUROSEMIDE 40MG VIAL IV STA (20:35)
[2021-01-25] MEDS ORDERED: ONDANSETRON 4MG INJ IV PRN (22:45)
[2021-01-25] MEDS ORDERED: GUAIFENESIN-DM 200/20 MG 10 ML PO PRN (22:45)
[2021-01-25] MEDS ORDERED: LACTULOSE 20 GM/30 ML UDCUP PO PRN (22:45)
[2021-01-25] MEDS ORDERED: ACETAMINOPHEN 325 MG TAB PO PRN ×2 (22:45)
[2021-01-25] MEDS ORDERED: MAG/ALUM/SIMETH 30 ML UDCUP PO PRN (22:45)
[2021-01-25] MEDS ORDERED: NITROGLYCERIN 0.4 MG SL TAB SL PRN (22:45)
[2021-01-25] MEDS ORDERED: ZOLPIDEM TARTRATE 5 MG TAB PO PRN (22:45)
[2021-01-25] MEDS: NITROGLYCERIN 1GM OINT 1 INCH/1GM TD SCH (22:45)
[2021-01-25] MEDS ORDERED: IPRATROPIUM/ALBUTEROL SULFATE 3 ML SOLUTION IH PRN (22:45)
[2021-01-25] MEDS ORDERED: DEXTROSE 50%-WATER 50 ML DISP.SYRIN IV PRN (23:00)
[2021-01-25] MEDS ORDERED: LABETALOL 20MG VIAL IV ONE ×2 (23:00→23:49)
[2021-01-25] MEDS ORDERED: GLUCAGON 1MG KIT 1 MG ML IM PRN (23:00)
[2021-01-26] VITALS (8 sets, daily range): BP systolic 128–190; BP diastolic 47–76
[2021-01-26] MEDS ORDERED: CLOP75TA32 PO (01:54)
[2021-01-26] MEDS ORDERED: AEC81 PO (01:54)
[2021-01-26] MEDS ORDERED: LABE200T5 PO (01:54)
[2021-01-26] MEDS ORDERED: FOLI0.8T22 PO (01:54)
[2021-01-26] MEDS ORDERED: HYDR100T27 PO (01:54)
[2021-01-26] MEDS ORDERED: FURO40TA5 PO (01:54)
[2021-01-26] MEDS ORDERED: ROSU5TAB12 PO (01:54)
[2021-01-26] MEDS ORDERED: INSU100V12 SQ (01:54)
[2021-01-26] MEDS ORDERED: FERS325 PO (01:54)
[2021-01-26] MEDS ORDERED: IRBE300T18 PO (01:54)
[2021-01-26] MEDS ORDERED: CYAN250010 PO (01:54)
[2021-01-26] MEDS ORDERED: LATA7.5D OP (03:52)
[2021-01-26] MEDS: NITROGLYCERIN 1GM OINT 1 INCH/1GM TD SCH ×3 (06:20→22:45)
[2021-01-26] MEDS: INSULIN HUMULIN R 100 UNIT/ML 3ML SQ SCH ×4 (06:21→21:00)
[2021-01-26 07:10] LABS: HEMATOCRIT 28.8 % (36-48); MEAN CORPUSCULAR HEMOGLOBIN 31.4 pg (27.0-33.0); MEAN CORPUSCULAR HGB CONC 32.6 g/dL (32.0-36.0); MEAN CORPUSCULAR VOLUME 96.3 fL (79-99); PLATELET COUNT (AUTO) 111 K/uL (130-400); RED BLOOD CELL COUNT(AUTO) 2.99 MIL/uL (4.00-5.50); RED CELL DISTRIBUTION WIDTH 12.9 % (11.0-15.5); WHITE BLOOD COUNT (AUTO) 5.7 K/uL (4.8-10.8)
[2021-01-26 07:27] LABS: ALBUMIN 3.4 g/dL (3.5-5.0); BILIRUBIN,TOTAL 1.6 mg/dL (0.2-1.0); CREATININE 1.9 mg/dL (0.5-1.5); POTASSIUM 3.6 mmol/L (3.5-5.1); TOTAL PROTEIN, SERUM 7.1 g/dL (6.0-8.3)
[2021-01-26 08:22] LABS: BASOPHILS % (MANUAL) 2 % (0-2); LYMPHOCYTES % (MANUAL) 5 % (22-44); MAN.DIFF COMMENT-IMPRESSION MANUAL DIFFERENTIAL; MONOCYTES % (MANUAL) 2 % (2-9); PLATELET MORPHOLOGY COMMENT SLIGHTLY DECREASED; SEGMENTED NEUTROPHILS % 91 % (40-70)
[2021-01-26] MEDS ORDERED: FAMOTIDINE 20MG VIAL IV SCH (09:00)
[2021-01-26] MEDS: LABETALOL HCL 200 MG TABLET PO SCH ×2 (09:18→21:25)
[2021-01-26] MEDS: FUROSEMIDE 40MG VIAL IVP SCH ×2 (09:18→21:25)
[2021-01-26] MEDS: LOSARTAN 100 MG TABLET PO SCH (09:18)
[2021-01-26] MEDS: ASPIRIN 81 MG EC TAB PO SCH (09:19)
[2021-01-26] MEDS: CLOPIDOGREL 75MG TAB PO SCH (09:19)
[2021-01-26] MEDS: HYDRALAZINE 25MG TABLET PO SCH ×3 (09:19→21:24)
[2021-01-26] MEDS: Vitamin B Complex/Vit C/Folic Acid PO SCH (09:19)
[2021-01-26] MEDS: FERROUS SULFATE 325 MG TABLET.DR PO SCH (09:19)
[2021-01-26] MEDS: CYANOCOBALAMIN (VITAMIN B-12) 1,000 MCG TABLET PO SCH (09:20)
[2021-01-26] MEDS: ENOXAPARIN SODIUM 40 MG/0.4 ML SYRINGE SQ SCH (09:20)
[2021-01-26] MEDS ORDERED: LIDOCAINE HCL-MPF 1% 2ML VIAL IV PRN (13:15)
[2021-01-26] MEDS ORDERED: POTASSIUM CHLORIDE 20MEQ/100ML 100 ML IV PRN (13:15)
[2021-01-26] MEDS ORDERED: KCL 20 MEQ ERTAB PO PRN (13:15)
[2021-01-26] MEDS ORDERED: POTASSIUM CHLORIDE 10% ELIXIR 20 MEQ/15 ML UDCUP PO PRN (13:15)
[2021-01-26] MEDS ORDERED: LATANOPROST 2.5 ML DROPS OP SCH (21:00)
[2021-01-26] MEDS ORDERED: INSULIN GLARGINE 100 UNITS/ML 10 ML VIAL SQ SCH (21:00)
[2021-01-26] MEDS ORDERED: ATORVASTATIN 10 MG TABLET PO SCH (21:00)
[2021-01-27] VITALS: BP 141/40
[2021-01-27 04:00] VITALS: BP 132/65
[2021-01-27 04:33] LABS: HEMATOCRIT 27.7 % (36-48); MEAN CORPUSCULAR HEMOGLOBIN 31.9 pg (27.0-33.0); MEAN CORPUSCULAR HGB CONC 33.2 g/dL (32.0-36.0); MEAN CORPUSCULAR VOLUME 96.2 fL (79-99); RED BLOOD CELL COUNT(AUTO) 2.88 MIL/uL (4.00-5.50); RED CELL DISTRIBUTION WIDTH 12.7 % (11.0-15.5); WHITE BLOOD COUNT (AUTO) 6.6 K/uL (4.8-10.8)
[2021-01-27 04:51] LABS: CREATININE 2.2 mg/dL (0.5-1.5); POTASSIUM 3.2 mmol/L (3.5-5.1)
[2021-01-27 07:27] VITALS: BP 147/63
[2021-01-27] MEDS: INSULIN HUMULIN R 100 UNIT/ML 3ML SQ SCH ×3 (07:30→15:55)
[2021-01-27] MEDS ORDERED: FAMOTIDINE 20MG TAB PO SCH (09:00)
[2021-01-27] MEDS ORDERED: FUROSEMIDE 40 MG TABLET PO SCH (09:00)
[2021-01-27] MEDS: Vitamin B Complex/Vit C/Folic Acid PO SCH (09:44)
[2021-01-27] MEDS: LOSARTAN 100 MG TABLET PO SCH (09:45)
[2021-01-27] MEDS: HYDRALAZINE 25MG TABLET PO SCH ×2 (09:45→13:59)
[2021-01-27] MEDS: FERROUS SULFATE 325 MG TABLET.DR PO SCH (09:45)
[2021-01-27] MEDS: ASPIRIN 81 MG EC TAB PO SCH (09:45)
[2021-01-27] MEDS: LABETALOL HCL 200 MG TABLET PO SCH (09:45)
[2021-01-27] MEDS: CLOPIDOGREL 75MG TAB PO SCH (09:45)
[2021-01-27] MEDS: ENOXAPARIN SODIUM 40 MG/0.4 ML SYRINGE SQ SCH (09:46)
[2021-01-27] MEDS: CYANOCOBALAMIN (VITAMIN B-12) 1,000 MCG TABLET PO SCH (09:49)
[2021-01-27 11:23] VITALS: BP 161/54
[2021-01-27] MEDS ORDERED: NITROGLYCERIN 1GM OINT 1 INCH/1GM TD SCH (14:00)
[2021-01-27 15:49] VITALS: BP 138/53
== END 2021-01-27 17:30 | disposition home or self-care (01) ==
LOC: EDH 17:22 → EDHIP 22:39 → 4CH 01-26 02:32
PROVIDERS: ADMIT Internal Medicine Pulmonary Disease; ATTEND Internal Medicine Pulmonary Disease
DX: I13.0 Hypertensive heart and chronic kidney disease with heart failure and stage 1 through stage 4 chronic kidney disease, or unspecified chronic kidney disease (principal); I50.30 Unspecified diastolic (congestive) heart failure; I16.1 Hypertensive emergency; E11.22 Type 2 diabetes mellitus with diabetic chronic kidney disease; N18.4 Chronic kidney disease, stage 4 (severe); E66.9 Obesity, unspecified; E11.51 Type 2 diabetes mellitus with diabetic peripheral angiopathy without gangrene; E78.5 Hyperlipidemia, unspecified; E78.00 Pure hypercholesterolemia, unspecified; D63.8 Anemia in other chronic diseases classified elsewhere; E03.9 Hypothyroidism, unspecified; F19.90 Other psychoactive substance use, unspecified, uncomplicated; I25.10 Atherosclerotic heart disease of native coronary artery without angina pectoris; I47.1 Supraventricular tachycardia; I48.91 Unspecified atrial fibrillation; I65.21 Occlusion and stenosis of right carotid artery; J44.9 Chronic obstructive pulmonary disease, unspecified; K21.9 Gastro-esophageal reflux disease without esophagitis; Z79.02 Long term (current) use of antithrombotics/antiplatelets; Z79.4 Long term (current) use of insulin; Z79.82 Long term (current) use of aspirin; Z79.899 Other long term (current) drug therapy; Z91.14 Patient's other noncompliance with medication regimen; Z95.1 Presence of aortocoronary bypass graft
CPT/HCPCS: 36415 ×3; 71045 ×2; 76770; 80048; 80053 ×2; 82550; 82948 ×7; 83735; 83874; 83880 ×2; 84484 ×2; 85025 ×2; 85027; 85378; 85610; 93005 ×2; 93306; 93356; 93970; 93975; 94640; 94664; 94760 ×2; 96372 ×2; 96374; 96375 ×2; 96376; 99285; G0378 ×41; J1650 ×2; J1815 ×2; J1940 ×3; J2405; J3490 ×2